=== PATIENT | female | born 1965 ===

== ENCOUNTER 2019-04-17 15:52 | Emergency (ER) | payer MEDICAID ==
[~2019-04-17] VITALS: Ht 152.4 cm; Wt 50.0 kg
--- NOTE | 2019-04-17 18:37 | NUR ---
PATIENT AMBULATED WELL WITH WALKING BOOT ON HER LEFT LEG
[2019-04-17 18:38] VITALS: BP 141/72
== END 2019-04-17 18:44 | disposition home or self-care (01) ==
LOC: ER 15:52
DX: S93.432A Sprain of tibiofibular ligament of left ankle, initial encounter (principal); X50.1XXA Overexertion from prolonged static or awkward postures, initial encounter; Y93.89 Activity, other specified; Y92.89 Other specified places as the place of occurrence of the external cause; Y99.8 Other external cause status
CPT/HCPCS: 73610; 99284